=== PATIENT | male | born 1945 | race Caucasian/White ===

== ENCOUNTER 2017-09-21 10:33 | Observation (INO) | payer MEDICARE ==
[2017-09-18 15:52] LABS: BASOPHILS # (AUTO) 0.1 (0.0-0.1); BASOPHILS % 0.7 % (0.0-1.0); EOSINOPHILS # (AUTO) 0.3 (0.0-0.4); EOSINOPHILS % 3.7 % (0.0-6.0); HEMATOCRIT 47.9 % (38.2-49.6); HEMOGLOBIN 16.4 g/dL (14.0-18.0); LYMPHOCYTES # (AUTO) 1.5 (1.0-3.2); LYMPHOCYTES % 17.4 % (18.0-39.1); MEAN CORPUSCULAR HEMOGLOBIN 30.9 pg (28-32); MEAN CORPUSCULAR HGB CONC 34.2 g/dL (31-35); MEAN CORPUSCULAR VOLUME 90.2 fL (81-99); MONOCYTES # (AUTO) 0.8 (0.2-0.8); MONOCYTES % 9.1 % (4.4-11.3); NEUTROPHILS # (AUTO) 5.9 (2.1-6.9); NEUTROPHILS % 68.9 % (38.7-80.0); PLATELET COUNT 230 x10e3/uL (140-360); RED BLOOD COUNT 5.31 x10e6/uL (4.3-5.7); RED CELL DISTRIBUTION WIDTH 12.5 % (11.7-14.4)
[2017-09-18 16:03] LABS: INR 1.03; PARTIAL THROMBOPLASTIN TIME 28.9 seconds (23.8-35.5); PROTHROMBIN TIME 12.7 seconds (11.9-14.5)
[2017-09-18 16:10] LABS: ALANINE AMINOTRANSFERASE 15 IU/L (0-55); ALBUMIN/GLOBULIN RATIO 1.3 (0.8-2.0); ALKALINE PHOSPHATASE 198 IU/L (40-150); ANION GAP 15.1 mmol/L (8-16); BLOOD UREA NITROGEN 17 mg/dL (7-26); BUN/CREATININE RATIO 18 (6-25); CALCIUM 9.5 mg/dL (8.4-10.2); CARBON DIOXIDE 25 mmol/L (22-29); CHLORIDE 106 mmol/L (98-107); CREATININE, SERUM 0.96 mg/dL (0.72-1.25); EST GLOMERULAR FILTRATION RATE > 60 ML/MIN (60-); GLUCOSE 96 mg/dL (74-118); POTASSIUM 4.1 mmol/L (3.5-5.1); SODIUM 142 mmol/L (136-145)
--- NOTE | 2017-09-18 16:59 | Diagnostic Imaging Report ---
PROCEDURE: Frontal and lateral views of the chest. COMPARISON: None. INDICATIONS: PREOP. Prostate biopsy. FINDINGS: Lines/tubes: None. Lungs: The lungs are well inflated and clear. There is no evidence of pneumonia or pulmonary edema. Pleura: There is no pleural effusion or pneumothorax. Heart and mediastinum: The heart and the mediastinum are normal. Bones: No acute bony abnormality. IMPRESSION: No acute cardiopulmonary disease. Dictated by: Diallo Bonilla M.D. on 09/18/2017 at 17:02 Electronically approved by: Diallo Bonilla M.D. on 09/18/2017 at 17:02
[2017-09-21] VITALS (7 sets, daily range): BP systolic 119–134; BP diastolic 72–77
[~2017-09-21] VITALS: Ht 182.9 cm; Wt 89.4 kg
[~2017-09-21 10:33] MED LIST: ASPIRIN EC81 MG PO; LOSARTAN-HCTZ1 EAC2 PO; NIFEDIPINE ER90 MG PO; OMEPRAZOLE20 MG PO; POTASSIUM CHLO10 ME1 PO; SYMBICORT 80-10.2 GM INH
[2017-09-21] MEDS ORDERED: CEFOXITIN SOD 1 GM VIAL ONE (10:46)
[2017-09-21] MEDS: SODIUM CHLORIDE 0.9% 1000ML 1,000 ML IV SCH ×2 (13:03→18:53)
[2017-09-21] MEDS ORDERED: HYDROCODONE/APAP 7.5MG-325MG 1 EA TAB PO PRN (13:15)
[2017-09-21] MEDS ORDERED: MORPHINE SULFATE 4 MG/ML SYR IV PRN (13:15)
[2017-09-21] MEDS ORDERED: MORPHINE SULFATE 2 MG/ML SYR IV PRN (13:30)
--- NOTE | 2017-09-21 13:57 | Operative Report ---
DATE OF PROCEDURE: September 21, 2017 PREOPERATIVE DIAGNOSIS: Elevated prostate-specific antigen. POSTOPERATIVE DIAGNOSIS: Elevated prostate-specific antigen. OPERATION PERFORMED: Ultrasound-directed transrectal prostate biopsy. ANESTHESIA: IV sedation monitored anesthesia care. INDICATIONS: This patient is a 71-year-old white male whose PSA has been monitored since 2012. It had all of a sudden gone up to 4.81 in May 2017 then on September 05, 2017 it went up to 9.35. His prostate felt benign on physical examination. After a detailed discussion with the patient regarding the risks and benefits of a prostate biopsy, the plan was to proceed with an ultrasound-directed transrectal prostate biopsy. For further details, please refer to the history and physical. The procedure was done in the following fashion. DESCRIPTION OF PROCEDURE: The patient was taken to the operating room, placed under IV sedation, monitored anesthesia care and placed in the lateral decubitus position with the right side up. An ultrasound scan of the prostate was performed. This revealed normal appearing seminal vesicles. There were a few internal calcifications but not many. There were no discrete hypoechoic areas. The prostate was estimated between 30 to 40 grams in size. Sextant biopsies of prostate were performed using the Marvin biopsy gun through the ultrasound probe. Specimens were taken from the right base lateral, then right base medial, then right mid lateral, then right mid medial, then right apex lateral, then right apex medial, then left base lateral, then left base medial, then left mid lateral, then left mid medial, then left apex lateral and then left apex medial. The ultrasound probe was then removed. The patient was returned to a supine position and [place] Solomon catheter inserted. The patient tolerated procedure well and left the operating room in good condition. The plan at this time is to monitor the patient overnight on IV Mefoxin and remove the Solomon catheter in the morning for a trial of voiding. Job#: [id number] KARSTEN
[2017-09-21] MEDS: METRONIDAZOLE 500MG/NS 100ML 100 ML IV SCH ×2 (14:09→21:45)
[2017-09-21] MEDS ORDERED: LIDOCAINE HCL 2% LOCAL INJ 5 ML SDV VIAL INJ ONE (17:03)
[2017-09-21] MEDS ORDERED: PROPOFOL IV EMULSION 10 MG/ML 20 ML VIAL ONE (17:03)
[2017-09-21] MEDS: DOCUSATE SODIUM 100 MG CAP PO SCH (17:57)
[2017-09-21] MEDS: CEFOXITIN SOD 1 GM VIAL IV SCH ×2 (17:59→23:44)
[2017-09-21] MEDS ORDERED: CEFOXITIN 1GM/ DEXTROSE 50ML 50 ML IV SCH (18:00)
[2017-09-21] MEDS ORDERED: MIDAZOLAM HCL 2 MG/2 ML VIAL ONE (18:40)
[2017-09-21] MEDS ORDERED: FENTANYL CITRATE/PF 100MCG/2 ML INJ ONE (18:40)
[2017-09-21] MEDS: BUDESONIDE/FORMOTEROL FUMARATE 80/4.5MCG 6.9 GM INH AEROSOL IH SCH (19:00)
[2017-09-22] VITALS: BP 120/72
[2017-09-22 04:00] VITALS: BP 112/68
[2017-09-22] MEDS: SODIUM CHLORIDE 0.9% 1000ML 1,000 ML IV SCH (04:49)
[2017-09-22] MEDS: METRONIDAZOLE 500MG/NS 100ML 100 ML IV SCH (06:26)
[2017-09-22] MEDS: CEFOXITIN SOD 1 GM VIAL IV SCH ×2 (06:26→12:25)
[2017-09-22 07:20] VITALS: BP 118/70
[2017-09-22] MEDS: BUDESONIDE/FORMOTEROL FUMARATE 80/4.5MCG 6.9 GM INH AEROSOL IH SCH (07:20)
[2017-09-22] MEDS ORDERED: PANTOPRAZOLE SOD 40 MG TABEC PO SCH (07:30)
[2017-09-22 08:48] VITALS: BP 118/70
[2017-09-22] MEDS: DOCUSATE SODIUM 100 MG CAP PO SCH (08:48)
[2017-09-22 12:16] VITALS: BP 130/75
[2017-09-22] MEDS ORDERED: MACROBID 100 M100 MG PO ×2 (13:03→13:09)
--- NOTE | 2017-09-22 13:39 | Progress Note ---
DATE: September 22, 2017 DISCHARGE PROGRESS NOTE SERVICE: Urology. This is a 71-year-old male. Patient is now 1 day status post ultrasound-directed transrectal prostate biopsy. The Solomon catheter has been removed. He is voiding with a good stream and clear-colored urine. My plan at this time is to discharge the patient on Macrobid 100 mg p.o. twice daily. He will have a return appointment to see me again in 2 weeks to go over the results of the biopsy. He will complete the course of his Flagyl at home. Job#: [id number]
== END 2017-09-22 14:13 | disposition home or self-care (01) ==
LOC: OR 10:33 → PACU V 13:08 → IMCU 13:49
PROVIDERS: ADMIT Urology; ATTEND Urology
DX: C61 Malignant neoplasm of prostate (principal); N40.1 Benign prostatic hyperplasia with lower urinary tract symptoms; R35.1 Nocturia; R39.12 Poor urinary stream; N43.0 Encysted hydrocele; N43.42 Spermatocele of epididymis, multiple; N52.8 Other male erectile dysfunction; K64.4 Residual hemorrhoidal skin tags; K21.9 Gastro-esophageal reflux disease without esophagitis; E78.5 Hyperlipidemia, unspecified; K58.9 Irritable bowel syndrome, unspecified; E78.00 Pure hypercholesterolemia, unspecified; N41.1 Chronic prostatitis
CPT/HCPCS: 36415; 55700; 71046; 76872; 76942 ×2; 80053; 85025; 85610; 85730; 88305; 93005; 94640; G0378 ×2; J0694 ×2; J2001; J2250; J7030 ×2; S0164 ×2